=== PATIENT | male | born 1960 | race Caucasian/White ===

== ENCOUNTER 2021-07-16 21:34 | Inpatient (IN) | payer BC, SELFPAY ==
--- NOTE | ~2021-07-16 | CT_ITS ---
EXAMINATION: CT abdomen pelvis w con INDICATION: Right lower quadrant pain TECHNIQUE: Computed tomographic images of the abdomen and pelvis were obtained after the administrati on of 100 cc of Omnipaque 300 intravenous contrast. The dose-length product (DLP) was 769.15 mGy-cm. Automated exposure control and iterative reconstruction technique were employed. COMPARISON: None available FINDINGS: Minimal dependent atelectasis is present in the lung bases. The heart size is normal. Cysts of the liver measure up to 3.4 cm in the right hepatic lobe. The spleen, pancreas, gallbladder, and adrenal glands are normal. The kidneys are unremarkable. The dilated appendix measures up to 1.4 cm. There is edematous stranding of the periappendiceal fat. There is a tiny fluid collection near the ti p of the appendix. No free intraperitoneal gas is identified. No pathologically enlarged abdominal or pelvic lymph nodes are identified. There are no dilated loops of bowel. IMPRESSION: 1. Acute appendicitis with small abscess near the tip. Reviewed, dictated and finalized at location A.
[2021-07-16 21:37] VITALS: BP 123/88; PULSE 102; RESP 14; TEMP 36.6; O2SAT 97
--- NOTE | 2021-07-16 21:47 | ED.ABDPAIN ---
HPI - Abdominal Pain General Chief Complaint: Abdominal Pain Stated Complaint: Right sided abd pain Time Seen by Provider: 07/16/21 21:46 History of Present Illness HPI narrative: 61-year-old male presents the emergency room with for evaluation of right lower quadrant pain. Patient states the pain began 2 days ago now radiates across his abdomen. Patient states ambulating and lifting his leg up to his chest make the pain worse. Patient denies any abdominal surgeries. Patient states he might of been feverish yesterday when the pain started. Related Data Home Medications Medication Instructions Recorded Confirmed clonazepam 0.5 mg PO BID PRN 07/16/21 escitalopram oxalate 20 mg PO DAILY 07/16/21 propranolol 40 mg PO Q12H 07/16/21 Allergies Allergy/AdvReac Type Severity Reaction Status Date / Time No Known Allergies Allergy Verified 07/16/21 22:30 Review of Systems Review of Systems: CONSTITUTIONAL: Denies fever, chills, or sweats. EYES: Denies visual changes, redness, or discharge. ENT: Denies rhinorrhea, congestion, sore throat, or otalgia. CARDIOVASCULAR: Denies chest pain, palpitations, or edema. RESPIRATORY: Denies cough or dyspnea. GASTROINTESTINAL: Reports abdominal pain GENITOURINARY: Denies dysuria or hematuria. SKIN: Denies rash or itching. MUSCULOSKELETAL: Denies back pain, joint pain, or myalgia. NEUROLOGIC: Denies headache, numbness, dizziness, or weakness. PSYCHIATRIC: Denies anxiety or depression. PMFSH Past Medical History Medical History Depression Hypertension Family History Family History (Updated 07/17/21 @ 01:32 by Joanie Membreno RN) Other No pertinent family history Social History Social History Smoking status: Never smoker Alcohol intake: current Drinks per week: 6 Substance use: never Substance use type: does not use Spiritual care concerns: No Exam Narrative: GENERAL: Well-appearing, well-nourished, and in no acute distress. HEAD: Normocephalic, atraumatic. EYES: PERRLA and EOMI. ENT: Nares clear, no rhinorrhea or epistaxis. Mucous membranes moist. Oropharynx without tonsillar hypertrophy exudate or other lesions. Bilateral TMs pearly painting nonbulging NECK: Supple. No adenopathy or masses. No carotid bruits or JVD CHEST: Clear to auscultation. No respiratory distress. No wheezes rales or rhonchi HEART: Regular rate and rhythm. No murmur heard. Normal peripheral pulses. ABDOMEN: Soft, right lower quadrant tenderness over McBurney's point, positive heel strike, positive psoas and obturator signs, hypoactive bowel sounds EXTREMITIES: Normal range of motion. No edema. SKIN: Warm, dry, no rash. NEURO: No focal deficits. Alert and oriented x3. PSYCH: Normal mood and affect. Course Vital Signs Vital signs: Vital Signs Temperature 36.6 C 07/16/21 21:37 Pulse Rate 102 H 07/16/21 21:37 Respiratory Rate 14 07/16/21 21:37 Blood Pressure 123/88 07/16/21 21:37 Pulse Oximetry 97 07/16/21 21:37 Temperature 36.6 C 07/16/21 21:37 Pulse Rate 85 07/16/21 23:50 Respiratory Rate 16 07/16/21 23:50 Blood Pressure 126/89 07/16/21 23:50 Pulse Oximetry 94 07/16/21 23:50 MDM - Abdominal Pain Lab Data Result diagrams: 07/16/21 21:58 07/16/21 21:58 Labs: Lab Results 07/16/21 07/16/21 07/16/21 Range/Units 21:58 21:58 21:58 WBC 15.4 H (4.5-10.0) K/mm3 RBC 4.66 (4.6-6.20) M/mm3 Hgb 15.9 (14.0-18.0) g/dL Hct 46.1 (42.0-52.0) % MCV 98.9 (80-100) fl MCH 34.1 H (26-34) pg MCHC 34.5 (32-36) g/dl RDW 12.1 (11.5-14.5) % Plt Count 192 (150-375) k/mm3 MPV 8.8 (7.4-10.4) fl Immature Gran % (Auto) 0.5 (0-0.5) % Neut % (Auto) 84.3 H (45.5-73.1) % Lymph % (Auto) 9.2 L (18.3-44.2) % [place] % (Auto) 5.5 (2.6-8.5) % Eos % (Auto)
[2021-07-16 22:04] LABS: Basophils Absolute Auto 0.1 K/mm3 (0.0-0.1); Basophils Percent Auto 0.4 % (0.2-1.2); Eosinophils Percent Auto 0.1 % (0-4.4); Hematocrit 46.1 % (42.0-52.0); Hemoglobin 15.9 g/dL (14.0-18.0); Immature Granulocyte Absolute 0.07 K/mm3 (0.00-0.031); Immature Granulocyte Percent A 0.5 % (0-0.5); Lymphocytes Absolute Auto 1.42 K/mm3 (0.9-3.2); Lymphocytes Percent Auto 9.2 % (18.3-44.2); Mean Corpuscular HGB Conc 34.5 g/dl (32-36); Mean Corpuscular Hemoglobin 34.1 pg (26-34); Mean Corpuscular Volume 98.9 fl (80-100); Mean Platelet Volume 8.8 fl (7.4-10.4); Monocytes Absolute Auto 0.9 K/mm3 (0.1-0.6); Monocytes Percent Auto 5.5 % (2.6-8.5); Neutrophils Percent Auto 84.3 % (45.5-73.1); Platelet Count Result 192 k/mm3 (150-375); Red Blood Count 4.66 M/mm3 (4.6-6.20); Red Cell Distribution Width 12.1 % (11.5-14.5); White Blood Count 15.4 K/mm3 (4.5-10.0)
[2021-07-16 22:13] LABS: Lactic Acid Reflex 1.2 mmol/L (0.7-2.0)
[2021-07-16 22:14] LABS: Alanine Aminotransferase 30 U/L (4-50); Albumin Level 4.3 g/dL (3.5-5.1); Alkaline Phosphatase 86 U/L (38-126); Anion Gap 7 mmol/L (8-16); Aspartate Amino Transferase 26 U/L (17-59); Bilirubin,Total 1.3 mg/dL (0.2-1.3); Blood Urea Nitrogen 18 mg/dL (9-20); Calcium 9.8 mg/dL (8.4-10.2); Carbon Dioxide 26 mmol/L (22-30); Chloride 98 mmol/L (98-107); Estimated CRCL calculation 60 ml/min; Estimated Glomerular Filt Rate 57; Glucose 136 mg/dL (65-110); Lipase 42 U/L (23-300); Potassium 4.1 mmol/L (3.4-5.0); Sodium 131 mmol/L (137-145)
[2021-07-16] MEDS: SODIUM CHLORIDE 0.9% IV 1,000 ML 999 ML IV CONT (22:30)
[2021-07-16 23:07] LABS: Appearance Urine Clear (Clear); Bilirubin Urine 1+ (Negative); Blood Urine 1+ (Negative); Color Urine Yellow (Yellow); Glucose Urine UA Negative (Negative); Ketones Urine 1+ mg/dL (Negative); Leukocyte Esterase Ur Negative LEU/UL (Negative); Nitrate Urine Negative (Negative); Protein Urine 2+ mg/dL (Negative); Specific Grav Ur 1.025 (1.001-1.035); pH Urine 6.5 (5.0-9.0)
[2021-07-16 23:15] LABS: Add Urine Microscopic? YES; Mucus Urine Heavy /lpf; Squamous Epithelial Cell Urine Rare /hpf (Few); WBC Urine 0-3 /hpf
[2021-07-16 23:50] VITALS: BP 126/89; PULSE 85; RESP 16; O2SAT 94
[2021-07-17] VITALS (10 sets, daily range): BP systolic 104–143; BP diastolic 59–78; PULSE 72–92; RESP 12–18; TEMP 36.5–36.8; O2SAT 93–97; BMI 27.6
--- NOTE | 2021-07-17 00:03 | ECG_ITS ---
Measurements Intervals [place] Rate: 86 P: 3 [place]: 156 QRS: 3 QRSD: 89 T: 115 QT: 352 QTc: 423 Interpretive Statements SINUS RHYTHM ST-T WAVE ABNORMALITY IN ANTEROLAT/HIGH LAT LEADS ABNORMAL ECG Electronically Signed On 07-17-2021 8:52:22 CDT by Daryl Jc D.O.
--- NOTE | 2021-07-17 01:14 | ADMGEN ---
This patient, Naeem Galvan, was admitted to 3 [facility] Surg Room 300-01. Patient/family oriented to hospital policies and general routines including ID bracelet, bed and alarms, visiting hours, pain management, procedures, bathroom and other care routines, personal items, smoking policy, room service/diet, and visiting hours. Information on how to activate the Rapid Response Team has been discussed. Patient/Family are encouraged to report perceived risks to care and to ask questions if they do not understand what they are told or what they should do.
--- NOTE | 2021-07-17 01:30 | PM.IMHP ---
H&P: HPI History of Present Illness Date/Time: 07/17/21 01:30 Chief Complaint: Abdominal pain. Narrative: This is a 61-year-old male with past medical history significant for generalized anxiety, depression. Patient presents to the emergency room due to right lower quadrant pain which started the day before initially was in the epigastric area later on localized to the right lower quadrant has had fevers, chills, rigors, poor appetite, denies any diarrhea. Patient states that he was in his usual state of health prior to these. Preliminary workup was significant for CT of abdomen and pelvis with appendicitis and perforation. Patient has been admitted for further evaluation ,management and treatment. Review of Systems Review of Systems: Right lower quadrant pain, chills, fevers, poor appetite. Constitutional: Constitutional: Reports chills, Denies fatigue, Reports fever(s), Denies malaise, Denies night sweats, Reports poor appetite and Denies weakness Eyes: Eyes: Denies change in vision ENT: Denies dysphagia, Denies vertigo, Denies nasal congestion, Denies nasal discharge, Denies nasal obstruction and Denies odynophagia Cardiovascular: Cardiovascular: Denies chest pain, Denies pedal edema, Denies claudication, Denies leg edema, Denies lightheadedness, Denies radiating jaw, neck or arm pain, Denies palpitations, Denies dyspnea on exertion and Denies orthopnea Respiratory: Respiratory: Denies cough Gastrointestinal: Gastrointestinal: Reports abdominal pain (Right lower quadrant), Denies dyspepsia, Denies heartburn, Denies diarrhea, Reports nausea and Denies vomiting Genitourinary: Genitourinary: Denies dysuria and Denies flank pain Musculoskeletal: Musculoskeletal: Denies arthralgias, Denies joint swelling and Denies muscle weakness Integumentary/Breasts: Skin/Breast: Denies rash Neurologic: Denies focal weakness and Denies Sensory deficit (Neuro) Psychiatric: Psychiatric: Reports no additional psychiatric complaints and Reports as per HPI Endocrine: Endocrine: Denies cold intolerance, Denies heat intolerance, Denies polyphagia, Denies polydipsia and Denies palpitations Hematologic/Lymphatic: Hematologic/Lymphatic: Reports no additional hematologic/lymphatic complaints and Reports as per HPI Allergic/Immunologic: Allergic/Immunologic: Reports no additional allergic/immunologic complaints and Reports as per HPI [facility] Past Medical History Medical History Depression Hypertension Family History Family History (Updated 07/17/21 @ 01:32 by Joanie Membreno RN) Other No pertinent family history Social History Social History Smoking status: Never smoker Alcohol intake: current Drinks per week: 6 Substance use: never Substance use type: does not use Spiritual care concerns: No Meds Home Medications and Allergies Home Medications Medication Instructions Recorded Confirmed Type clonazepam 0.5 mg PO BID PRN 07/16/21 07/17/21 History escitalopram oxalate 20 mg PO DAILY 07/16/21 07/17/21 History propranolol 40 mg PO Q12H 07/16/21 07/17/21 History Allergies Allergy/AdvReac Type Severity Reaction Status Date / Time No Known Allergies Allergy Verified 07/17/21 01:38 Vital Signs Vital Signs - 24 hr 07/16/21 21:37 07/16/21 23:50 Temperature 97.9 F Pulse Rate 102 H 85 Respiratory Rate 14 16 Blood Pressure 123/88 126/89 Pulse Oximetry 97 94 Exam Narrative: Patient is laying in the stretcher Const: General: cooperative, comfortable, no acute distress, well developed, alert, awake and ill appearing acutely Nutritional Appearance: average body habitus Orientation/consciousness: patient oriented x3 HENMT: Head: normal to inspection, normocephalic and atraumatic Ears: hearing grossly normal bilaterally General nose exam: Normal external nose present Face and sinus: normal
[2021-07-17] MEDS: DEXTROSE 5%/LACTATED RINGERS 1,000 ML 100 ML IV CONT ×3 (02:18→20:48)
[2021-07-17] MEDS: HYDROmorphone HCL INJ (*CRX) 1 MG/ML SYR IV PUSH ×2 (02:18→11:28)
--- NOTE | 2021-07-17 07:53 | PM.IMHP ---
H&P: HPI History of Present Illness Date/Time: 07/17/21 07:53 Chief Complaint: Abdominal pain with CT showing appendicitis Narrative: This is a 61-year-old white male who presented last night to the emergency room with for evaluation of right lower quadrant pain. Patient states the pain began 2 days ago now radiates across his abdomen and is now mainly centered in the right lower quadrant.. Patient states ambulating and lifting his leg up to his chest make the pain worse. Patient denies any abdominal surgeries. Patient states he might of been feverish yesterday when the pain started. Again he states however even though he has a thermometer at home he did not think of taking his temperature and does not know whether he had a fever at home or not. Review of Systems Review of Systems: All systems reviewed & are unremarkable except as noted in HPI and below (HPI) Constitutional: Constitutional: Reports as per HPI, Denies chills and Denies fever(s) Eyes: Eyes: Reports no additional eye complaints ENT: Reports Normal hearing present and Denies dizziness Cardiovascular: Cardiovascular: Reports no additional cardiovascular complaints, Denies chest pain and Denies irregular heart rhythm Comments: Have 2 history of hypertension on medications No previous history of cardiac disease. Respiratory: Respiratory: Reports no additional respiratory complaints Gastrointestinal: Gastrointestinal: Reports no additional gastrointestinal complaints, Denies abdominal pain and Denies bloating Genitourinary: Genitourinary: Denies hematuria Musculoskeletal: Musculoskeletal: Denies back pain Integumentary/Breasts: Skin/Breast: Reports system reviewed and no additional complaints, except as docu Neurologic: Reports Normal hearing present, Denies Abnormal speech present, Denies confusion and Denies dizziness Psychiatric: Psychiatric: Reports no additional psychiatric complaints and Denies confusion Comments: history of depression on medication. Endocrine: Endocrine: Reports no additional endocrine complaints Hematologic/Lymphatic: Hematologic/Lymphatic: Denies easy bleeding and Denies easy bruising Comments: Allergic/Immunologic: Allergic/Immunologic: Reports no additional allergic/immunologic complaints PMFSH Past Medical History Medical History Depression Hypertension Family History Family History Other No pertinent family history Social History Social History Smoking status: Never smoker Alcohol intake: current Drinks per week: 6 Substance use: never Substance use type: does not use Spiritual care concerns: No Meds Home Medications and Allergies Home Medications Medication Instructions Recorded Confirmed Type clonazepam 0.5 mg PO BID PRN 07/16/21 07/17/21 History escitalopram oxalate 20 mg PO DAILY 07/16/21 07/17/21 History propranolol 40 mg PO Q12H 07/16/21 07/17/21 History Allergies Allergy/AdvReac Type Severity Reaction Status Date / Time No Known Allergies Allergy Verified 07/17/21 01:38 Vital Signs Vital Signs - 24 hr 07/16/21 21:37 07/16/21 23:50 07/17/21 06:00 Temperature 36.6 C 36.7 C Pulse Rate 102 H 85 86 Respiratory Rate 14 16 16 Blood Pressure 123/88 126/89 143/78 H Pulse Oximetry 97 94 95 Exam Const: General: cooperative, healthy appearing, comfortable, no acute distress, well developed, alert and awake; No confusion Orientation/consciousness: patient oriented x3 and No confusion HENMT: Head: normal to inspection Ears: hearing grossly normal bilaterally Mouth: Yes moist mucous membranes Teeth and gingiva: dentition normal Eyes: General: appearance normal, both eyes and all related structures Conjunctivae: conjunctivae normal Neck: Neck: normal visual inspection, trachea midline and supple Lymph
[2021-07-17 08:16] LABS: Anion Gap 4 mmol/L (8-16); Blood Urea Nitrogen 15 mg/dL (9-20); Calcium 8.5 mg/dL (8.4-10.2); Carbon Dioxide 27 mmol/L (22-30); Chloride 101 mmol/L (98-107); Estimated CRCL calculation 65 ml/min; Estimated Glomerular Filt Rate > 60; Glucose 145 mg/dL (65-110); Magnesium 1.9 mg/dL (1.6-2.3); Potassium 3.7 mmol/L (3.4-5.0); Sodium 132 mmol/L (137-145)
[2021-07-17 08:29] LABS: Troponin I < 0.012 ng/mL (0.000-0.034)
--- NOTE | 2021-07-17 10:15 | PM.IMPN ---
Progress Note: A&P Assessment and Plan (1) Acute appendicitis: Onset Date: ~07/2021 Qualifiers: Acute appendicitis type: unspecified acute appendicitis type Qualified Code(s): K35.80 - Unspecified acute appendicitis Code(s): K35.80 - Unspecified acute appendicitis Status: Acute Assessment and Plan: Ct indicates acute appendicitis with microperf Will need cardiology risk assessment, for surgical procedure Surgery scheduled for today NPO for now IV fluids D5LR at 100ml/Hr Dilaudid 1mg Q3H for pain control GS consulted, thank you for your help WBC elevated, continue to trend Continue Zosyn (2) Depression: Code(s): F32.A - Depression, unspecified Status: Acute Assessment and Plan: No acute problem Restart lexapro when able to take PO Trend Mood Adjust as indicated (3) Hypertension: Onset Date: Unknown Code(s): I10 - Essential (primary) hypertension Status: Acute Assessment and Plan: Current BP is 143/78 Propranolol on hold while NPO Trend BP and heart rate Add hydralizine IV with parameters for hypertension Adjust therapy as indicated Time Spent With Patient Time with patient: Greater than 35 minutes Subjective Date/time seen: 07/17/21 10:15 Interval history: Date/Time: 07/17/21 01:30 Narrative: This is a 61-year-old male with past medical history significant for generalized anxiety, depression. Patient presents to the emergency room due to right lower quadrant pain which started the day before initially was in the epigastric area later on localized to the right lower quadrant has had fevers, chills, rigors, poor appetite, denies any diarrhea. Patient states that he was in his usual state of health prior to these. Preliminary workup was significant for CT of abdomen and pelvis with appendicitis and perforation. Patient has been admitted for further evaluation ,management and treatment. Date/Time: 07/17/21 10:15 Patient stated that he is experiencing pain in the right upper quadrant. 08/19. He said he has not been eating much over the last couple days. Patient did have some sweats fevers chills or really has not had any of those today. He denies any chest pain, shortness of breath, nausea, vomiting, diarrhea Maxine or constipation. Patient does state that his pain is exacerbated by cough and movement. Kidney function is a little elevated. IV fluids are on board. Review of Systems Review of Systems: All systems reviewed & are unremarkable except as noted in HPI and below Exam Const: General: cooperative, comfortable, no acute distress, well developed, alert, awake and ill appearing acutely Nutritional Appearance: average body habitus Orientation/consciousness: patient oriented x3 HENMT: Head: normal to inspection, normocephalic and atraumatic Ears: hearing grossly normal bilaterally General nose exam: Normal external nose present Face and sinus: normal facial exam Mouth: Yes dry mucous membranes Eyes: General: appearance normal, both eyes and all related structures Alignment and Position: alignment normal Pupils: Equal, round and reactive pupils present EOM: EOMs intact bilaterally Neck: Neck: normal visual inspection, full ROM, no lymphadenopathy, supple and no JVD Thyroid: thyroid normal Resp: Effort & Inspection: normal respiratory effort and able to speak in complete sentences Auscultation: clear to auscultation bilaterally, no crackles, no rales, no rhonchi and no wheezes Cardio: Jugular venous distension: no JVD Rate: regular rate Rhythm: regular rhythm Heart sounds: S1 normal heart sound present and S2 normal heart sound present GI: Inspection: normal to inspection GI Palp: Yes abdominal tenderness, Yes Tenderness to palpation present (GI) and Yes Guarding due to palpation present (GI) : General: Yes deferred Skin: Rashes: no rashes Wounds: no wounds Neuro: G
--- NOTE | 2021-07-17 10:20 | PC.NURSE ---
Dr. Soto stopped at the [facility] station to inform me that he is signing off from a cardiology standpoint for pt to be eligible for surgery today. He stated that he would submit a report later today but that pt is cleared for surgery from cardiology. I contacted Dr. Garrick Porras and made him aware of this.
[2021-07-17 11:42] LABS: Troponin I < 0.012 ng/mL (0.000-0.034)
--- NOTE | 2021-07-17 12:11 | WPDHPUPDATE1 ---
History and Physical Update Update Date/Time: 07/17/21 12:11 History and Physical has been reviewed, including an updated exam of the patient. There are changes in the patient's condition. Patient has been seen by Cardiology and cleared for anesthesia. Risks, benefits, and alternatives of laparoscopic appendectomy possible open have been discussed and questions answered. Patient agrees to proceed with procedure.
--- NOTE | 2021-07-17 12:41 | WPDANESEPPF ---
Anes - Initial Pre Proc Eval Procedure: Operation Date: 07/17/21 12:30 Proposed Procedures p Laparoscopic Appendectomy - Garrick Porras MD Date/Time: 07/17/21 12:41 Surgeon: Garrick Porras MD Pre Op Diagnosis: appendicitis Patient Data Age: 61 Gender: M Height: 1.83 m Weight: 92.6 kg Last Vital Signs Temp 36.7 C 07/17/21 06:00 Pulse 86 07/17/21 06:00 Resp 16 07/17/21 06:00 BP 143/78 H 07/17/21 06:00 Pulse Ox 95 07/17/21 06:00 Allergies Allergy/AdvReac Type Severity Reaction Status Date / Time No Known Allergies Allergy Verified 07/17/21 01:38 Home Medications Medication Instructions Recorded Confirmed Type clonazepam 0.5 mg PO BID PRN 07/16/21 07/17/21 History escitalopram oxalate 20 mg PO DAILY 07/16/21 07/17/21 History propranolol 40 mg PO Q12H 07/16/21 07/17/21 History Laboratory Tests 07/16/21 07/16/21 07/16/21 21:58 21:58 21:58 WBC 15.4 K/mm3 H K/mm3 (4.5-10.0) RBC 4.66 M/mm3 M/mm3 (4.6-6.20) Hgb 15.9 g/dL g/dL (14.0-18.0) Hct 46.1 % % (42.0-52.0) MCV 98.9 fl fl (80-100) MCH 34.1 pg H pg (26-34) MCHC 34.5 g/dl g/dl (32-36) RDW 12.1 % % (11.5-14.5) Plt Count 192 k/mm3 k/mm3 (150-375) MPV 8.8 fl fl (7.4-10.4) Immature Gran % (Auto) 0.5 % % (0-0.5) Neut % (Auto) 84.3 % H % (45.5-73.1) Lymph % (Auto) 9.2 % L % (18.3-44.2) [place] % (Auto) 5.5 % % (2.6-8.5) Eos % (Auto) 0.1 % % (0-4.4) Baso % (Auto) 0.4 % % (0.2-1.2) Lymph # (Auto) 1.42 K/mm3 K/mm3 (0.9-3.2) [place] # (Auto) 0.9 K/mm3 H K/mm3 (0.1-0.6) Eos # (Auto) 0.0 K/mm3 K/mm3 (0-0.3) Baso # (Auto) 0.1 K/mm3 K/mm3 (0.0-0.1) Abs Immat Gran (auto) 0.07 K/mm3 H K/mm3 (0.00-0.031) Absolute Neuts (auto) 13.0 K/mm3 H K/mm3 (1.3-6.7) Absolute Nucleated RBC 0.0 K/mm3 K/mm3 (0.0-0.012) Nucleated RBC % 0.0 % % (0.0-0.2) Sodium 131 mmol/L L mmol/L (137-145) Potassium 4.1 mmol/L mmol/L (3.4-5.0) Chloride 98 mmol/L mmol/L (98-107) Carbon Dioxide 26 mmol/L mmol/L (22-30) Anion Gap 7 mmol/L L mmol/L (8-16) BUN 18 mg/dL mg/dL (9-20) Creatinine 1.30 mg/dL mg/dL (0.7-1.3) Estim Creat Clear Calc 60 ml/min ml/min Estimated GFR 57 L (59 - ) Glucose 136 mg/dL H mg/dL (65-110) Lactic Acid 1.2 mmol/L mmol/L (0.7-2.0) Calcium 9.8 mg/dL mg/dL (8.4-10.2) Magnesium Total Bilirubin 1.3 mg/dL mg/dL (0.2-1.3) AST 26 U/L U/L (17-59) ALT 30 U/L U/L (4-50) Alkaline Phosphatase 86 U/L U/L (38-126) Troponin I Total Protein 8.0 g/dL g/dL (6.3-8.2) Albumin 4.3 g/dL g/dL (3.5-5.1) Lipase 42 U/L U/L (23-300) Urine Color Urine Appearance Urine pH Ur Specific [place] Urine Protein Urine Glucose (UA) Urine Ketones Ur Blood (Man) Urine Nitrate Urine Bilirubin Urine Urobilinogen Leukocyte Esterase Rfl Urine RBC Urine WBC Ur Squamous Epith Cells Urine Mucus 07/16/21 07/17/21 07/17/21 22:56 07:48 07:58 WBC RBC Hgb Hct MCV MCH MCHC RDW Plt Count MPV Immature Gran % (Auto) Neut % (Auto) Lymph % (Auto) [place] % (Auto) Eos % (Auto) Baso % (Auto) Lymph # (Auto) [place] # (Auto) Eos # (Auto) Baso # (Auto)
[2021-07-17] MEDS: LACTATED RINGERS 1,000 ML 30 ML IV CONT ×2 (16:13)
--- NOTE | 2021-07-17 16:30 | W.PM.PROC2 ---
Procedure Note - Detailed Date of Procedure 07/17/21 Pre-op Diagnosis 1. Acute appendicitis with perforation and localized peritonitis. 2. A small umbilical hernia without incarceration. Post-op Diagnosis Same Procedure Performed laparoscopic appendectomy Surgeon Garrick Porras MD Physicist [employer] [facility] TERRY. [place] [employer] Anesthesia General Indications Patient presented to the ER yesterday with 2 days of abdominal pain. There was elevated white count and CT scan suggested acute appendicitis with microperforation and surrounding fluid. Therefore, I discussed the options with the patient including antibiotic treatment only or antibiotics plus surgical intervention. After thorough discussion we decided to proceed with surgical intervention because the may already have a perforation and he is more likely to then develop an abscess or have another problem if not addressed. Findings Patient had a very inflamed enlarged retrocecal appendix completely surrounded by the cecum medially the abdominal wall laterally ileum inferiorly and the omentum anterior and superiorly. Upon dissecting around it there was a flow of brownish green purulent material that was suctioned away (I suspect it was about 5 cc). Description of Procedure The patient was seen again in the Holding Room. The risks, benefits, complications, treatment options, and expected outcomes were discussed with the patient and/or family. The possibilities of reaction to medication, pulmonary aspiration, perforation of viscus, bleeding, recurrent infection, finding a normal appendix, the need for additional procedures, failure to diagnose a condition, and creating a complication requiring transfusion or operation were discussed. There was concurrence with the proposed plan and informed consent was obtained. The site of surgery was properly noted/marked. The patient was taken to Operating Room, and a time out was preformed which identified this as the proper patient, and the procedure verified as laparoscopic appendectomy, possible open. The patient was placed in the supine position and general anesthesia was induced, along with placement of an orogastric tube, SCD hose, and a Goodrich catheter. The abdomen was prepped and draped in a sterile fashion. Because the patient had an obvious small umbilical hernia I used the Parra cannula technique. This then allowed me to make a small transverse incision curvilinearly in the umbilical fold. I then dissected with a 15 blade knife after placing local anesthetic in the area of the proposed incision and the skin was dissected off the top of the hernia sac. There appeared to be preperitoneal fat within the hernia sac. We carefully dissected along its left side and entered the abdomen under direct vision. Under direct vision the peritoneum entered under after placing 2 sutures of 0 Vicryl in the fascia on either side of midline hernia defect. The Parra cannula was then slid into place into the peritoneum under direct vision. The balloon was inflated and then pulled back and the olive was secured down. The pneumoperitoneum was then established to steady pressure of 15 mm Hg. A 12 mm laparoscopic port was placed through a transverse suprapubic incision. An additional 5 mm cannula was then placed in the left upper quadrant at the level half-way between the left costal margin and the umbilicus under direct vision. A careful evaluation of the entire abdomen was carried out. The patient was placed in Trendelenburg and left lateral decubitus position. The small intestines were retracted in the cephalad and left lateral direction away from the pelvis and right lower quadrant. The patient was found to have an enlarged and inflamed appendix that was extending cephalad into the retrocecal position. There was evidence of perforation. As I began trying to dissect the omentum away from the right lateral sidewall and from the anterior surface of the cecum there was a flow of brownis
[2021-07-18 01:22] VITALS: O2SAT 96
[2021-07-18 02:30] VITALS: PULSE 70; O2SAT 95
[2021-07-18] MEDS: DEXTROSE 5%/LACTATED RINGERS 1,000 ML 100 ML IV CONT (05:05)
[2021-07-18 06:00] VITALS: BP 117/70; PULSE 71; RESP 18; TEMP 36.8; O2SAT 97
[2021-07-18 07:20] LABS: Basophils Percent Auto 0.1 % (0.2-1.2); Hematocrit 34.8 % (42.0-52.0); Hemoglobin 11.9 g/dL (14.0-18.0); Lymphocytes Absolute Auto 0.77 K/mm3 (0.9-3.2); Lymphocytes Percent Auto 7.5 % (18.3-44.2); Mean Corpuscular HGB Conc 34.2 g/dl (32-36); Mean Corpuscular Hemoglobin 33.9 pg (26-34); Mean Corpuscular Volume 99.1 fl (80-100); Mean Platelet Volume 9.2 fl (7.4-10.4); Monocytes Absolute Auto 0.6 K/mm3 (0.1-0.6); Monocytes Percent Auto 5.8 % (2.6-8.5); Neutrophils Absolute Auto 8.8 K/mm3 (1.3-6.7); Neutrophils Percent Auto 85.6 % (45.5-73.1); Platelet Count Result 148 k/mm3 (150-375); Red Blood Count 3.51 M/mm3 (4.6-6.20); Red Cell Distribution Width 11.8 % (11.5-14.5); White Blood Count 10.3 K/mm3 (4.5-10.0)
[2021-07-18 07:40] LABS: Alanine Aminotransferase 20 U/L (6-50); Albumin Level 3.1 g/dL (3.5-5.1); Alkaline Phosphatase 60 U/L (38-126); Anion Gap 4 mmol/L (8-16); Aspartate Amino Transferase 21 U/L (17-59); Bilirubin,Total 0.9 mg/dL (0.2-1.3); Blood Urea Nitrogen 12 mg/dL (9-20); Calcium 8.2 mg/dL (8.4-10.2); Carbon Dioxide 28 mmol/L (22-30); Chloride 102 mmol/L (98-107); Estimated CRCL calculation 65 ml/min; Estimated Glomerular Filt Rate > 60; Glucose 137 mg/dL (65-110); Potassium 3.7 mmol/L (3.4-5.0); Sodium 134 mmol/L (137-145)
--- NOTE | 2021-07-18 08:58 | P.PNAN_ITS ---
Anes - Prog Note Post-Op Date/Time: 07/18/21 08:58 Cardiovascular status: normal Respiratory status: normal Airway patency: baseline Mental status: baseline Post-Op hydration status: normal Vital Signs: Last Vital Signs Temp 36.8 C 07/18/21 06:00 Pulse 71 07/18/21 06:00 Resp 18 07/18/21 06:00 BP 117/70 07/18/21 06:00 Pulse Ox 97 07/18/21 06:00 Pain Score (VAS): 0 I/O: Intake & Output 07/17/21 07/18/21 07/18/21 23:59 07:59 15:59 Intake Total 1150 1100 Output Total 200 1275 Balance 950 -175 Laboratory Tests 07/18/21 06:37 07/18/21 06:37 07/17/21 07/18/21 07/18/21 10:54 06:37 06:37 WBC 10.3 H RBC 3.51 L Hgb 11.9 L D Hct 34.8 L MCV 99.1 MCH 33.9 MCHC 34.2 RDW 11.8 Plt Count 148 L MPV 9.2 Immature Gran % (Auto) 1.0 H Neut % (Auto) 85.6 H Lymph % (Auto) 7.5 L Daniels % (Auto) 5.8 Eos % (Auto) 0.0 Baso % (Auto) 0.1 L Lymph # (Auto) 0.77 L Daniels # (Auto) 0.6 Eos # (Auto) 0.0 Baso # (Auto) 0.0 Abs Immat Gran (auto) 0.10 H Absolute Neuts (auto) 8.8 H Absolute Nucleated RBC 0.0 Nucleated RBC % 0.0 Sodium 134 L Potassium 3.7 Chloride 102 Carbon Dioxide 28 Anion Gap 4 L BUN 12 Creatinine 1.20 Estim Creat Clear Calc 65 Estimated GFR > 60 Glucose 137 H Calcium 8.2 L Magnesium 2.0 Total Bilirubin 0.9 AST 21 ALT 20 Alkaline Phosphatase 60 Troponin I < 0.012 Total Protein 6.0 L Albumin 3.1 L Post-procedural complaints: none Patient Feedback: Patient satisfied with anesthetic care.
[2021-07-18] MEDS: ENOXAPARIN 40 MG/0.4 ML SYRINGE SUB-Q (09:10)
--- NOTE | 2021-07-18 09:28 | PM.PNCARD ---
Progress Note: A&P Assessment and Plan (1) Abnormal EKG: Code(s): R94.31 - Abnormal electrocardiogram [ECG] [EKG] Status: Acute Assessment and Plan: Repeat 12 lead EKG. If persistent despite improved blood pressure control will discuss outpatient follow-up and appropriate workup. Patient is not exhibiting any anginal symptoms. No acute cardiovascular issue at this time. 2D echocardiogram to assess for LV function, wall motion abnormalities. Discussed with patient in detail. He understands and agrees with plan of care. Recommendation to follow. (2) Acute appendicitis: Onset Date: ~07/2021 Qualifiers: Acute appendicitis type: unspecified acute appendicitis type Qualified Code(s): K35.80 - Unspecified acute appendicitis Code(s): K35.80 - Unspecified acute appendicitis Status: Acute Assessment and Plan: Management per surgery. Doing well from this perspective. (3) Hypertension: Onset Date: Unknown Code(s): I10 - Essential (primary) hypertension Status: Acute Assessment and Plan: Better control, no issues this morning. Continue home medical therapy. Subjective Date/time seen: Date of service: 07/18/21 09:28 Follow-up for preoperative assessment, abnormal EKG Patient seen by Dr. Shantell Marte in consultation preoperatively yesterday morning and cleared for surgery. Patient did well status post appendectomy. Denies chest pain shortness of breath. Pain control. No issues overnight. Review of Systems Review of Systems: All systems reviewed & are unremarkable except as noted in HPI and below Constitutional: Constitutional: Reports as per HPI and Reports no additional constitutional complaints Eyes: Eyes: Reports as per HPI and Reports no additional eye complaints ENT: Reports system reviewed and no additional complaints, except as documented and Reports as per HPI Cardiovascular: Cardiovascular: Reports as per HPI and Reports no additional cardiovascular complaints Respiratory: Respiratory: Reports as per HPI and Reports no additional respiratory complaints Gastrointestinal: Gastrointestinal: Reports as per HPI and Reports no additional gastrointestinal complaints Genitourinary: Genitourinary: Reports no additional male genitourinary complaints and Reports as per HPI Musculoskeletal: Musculoskeletal: Reports no additional musculoskeletal complaints and Reports as per HPI Integumentary/Breasts: Skin/Breast: Reports system reviewed and no additional complaints, except as docu and Reports as per HPI Neurologic: Reports system reviewed and no additional complaints, except as documented and Reports as per HPI Psychiatric: Psychiatric: Reports no additional psychiatric complaints and Reports as per HPI Endocrine: Endocrine: Reports no additional endocrine complaints and Reports as per HPI Hematologic/Lymphatic: Hematologic/Lymphatic: Reports no additional hematologic/lymphatic complaints and Reports as per HPI Allergic/Immunologic: Allergic/Immunologic: Reports no additional allergic/immunologic complaints and Reports as per HPI Exam Narrative: General: Well developed, alert and oriented x3. No apparent distress, comfortable, pleasant, and cooperative. Head: atraumatic, normocephalic Eyes: EOM intact, sclerae anicteric, conjunctivae unremarkable Ears/Nose: external inspection of ears and nose were grossly normal Mouth/Throat: oral mucosa pink and moist Neck: supple, normal range of motion, no jugular venous distention or carotid bruits, thyroid nonpalpable, trachea midline. Cardiac: Regular rate and rhythm, normal S1-S2, no murmurs, clicks, gallops, or rubs. Lungs: Clear to auscultation bilaterally, no rales, wheezes, or rhonchi. Abdomen: Soft, nontender, nondistended, positive bowel sounds throughout. No appreciable hepatosplenomegaly, no rebound guarding or rigidity noted. Abdominal aorta nonpalpable, no appreciable b
--- NOTE | 2021-07-18 09:32 | ECG_ITS ---
Measurements Intervals [place] Rate: 78 P: -3 FL: 156 QRS: 20 QRSD: 98 T: 178 QT: 379 QTc: 434 Interpretive Statements SINUS RHYTHM EARLY PRECORDIAL R/S TRANSITION ST-T WAVE ABNORMALITY IN ANTEROLAT/HIGH LAT LEADS- CONSIDER ISCHEMIA ABNORMAL ECG Electronically Signed On 07-18-2021 10:21:36 CDT by Daryl Jc D.O.
--- NOTE | 2021-07-18 09:32 | ECHO_ITS ---
Patient Info Name: Naeem Galvan Age: 61 years : 1960 Gender: Male Ht: 72 in Wt: 204 lbs BSA: 2.18 m2 HR: 69 bpm BP: 117 / 70 mmHg Heart Rhythm: Sinus Rhythm Technical Quality: Good Exam Date: 07/18/2021 2:50 PM Exam Location: [facility] Patient Status: Inpatient Admit Date: 07/17/2021 Staff Ordering Physician: Mark Stephens MD Recyclable Materials Collector: Arianna Leung RDCS Attending Provider: Garrick Porras MD Referring Physician: Angelo URRUTIA; Exam Type: CA echo doppler color flow Study Info Indications R94.31 - Abnormal electrocardiogram ECG EKG Complete two-dimensional, color flow and Doppler transthoracic echocardiogram is performed. Summary 1. Complete two-dimensional, color flow and Doppler transthoracic echocardiogram is performed. 2. Left ventricular systolic function is normal, estimated at 60%. 3. Left ventricular chamber dimension is mildly enlarged. 4. The left ventricular diastolic function is normal. 5. Global longitudinal strain is mildly elevated at -17 %. 6. There is trace mitral valve regurgitation. Left Ventricle Left ventricular systolic function is normal, estimated at 60%. Left ventricular chamber dimension is mildly enlarged. The left ventricular diastolic function is normal. Global longitudinal strain is mildly elevated at -17 %. Right Ventricle Right ventricular chamber dimension is normal. Right ventricular systolic function is normal. Left Atria Left atrial chamber dimension is normal. Right Atria Right atrial chamber dimension is normal. Aortic Valve The aortic valve is trileaflet. There is no aortic valve stenosis. There is no aortic valve regurgitation. Pulmonic Valve The pulmonic valve is not well visualized. There is trace pulmonic regurgitation. Mitral Valve The mitral valve has normal leaflets. There is trace mitral valve regurgitation. Tricuspid Valve The tricuspid valve leaflets are normal. There is trace tricuspid valve regurgitation. No pulmonary hypertension, estimated pulmonary arterial systolic pressure is 25 mmHg. Pericardium/Pleural The pericardium appears normal. There is no pericardial effusion. Inferior Vena Cava Normal inferior vena cava with >50% collapse upon inspiration consistent with normal right atrial pressure, 5 mmHg. Aorta The aortic root size at the sinus of Valsalva is normal. There is mild aortic atherosclerosis. Left Ventricular Outflow Tract Name Value Normal LVOT 2D LVOT Diameter 2.0 cm LVOT Doppler LVOT Peak Gradient 4 mmHg LVOT Mean Gradient 3 mmHg LVOT VTI 23 cm LVOT VTI/AV VTI Ratio 1.0 LVOT Stroke Volume 74 ml Pulmonic Valve Name Value Normal RVOT Doppler RVOT Peak Gradient
[2021-07-18 10:06] VITALS: PULSE 82
[2021-07-18] MEDS: ESCITALOPRAM OXALATE 10 MG TABLET 20 MG PO (10:06)
[2021-07-18] MEDS: PROPRANOLOL HCL 40 MG TABLET PO (10:06)
--- NOTE | 2021-07-18 10:08 | PM.CNCAR ---
Assessment and Plan Additional Plan pre-operative evaluation before non cardiac surgery (urgent surgery for appendicitis), MET > 4, EKG with SR and LVH, asymptomatic at baseline, no prior cardiac Hx or risk factors other than HTN, plan no further cardiac work up needed before non cardiac surgery. Please call back if needed. History of Present Illness History of Present Illness Consult date/time: 07/17/21 10:08 Consult reason: pre-op evaluation Reason For Visit: appendicitis Narrative: Patient presented for evaluation of acute abdominal pain and nausea, started few days ago in mid abdomen then moved to right lower quadrant with chills fever and sever pain and tenderness constant. He was found to have appendicitis and referred for surgery. Cardiology called for pre-operative evaluation. He is physically active and walks for 1.5 miles 3 times per week. He has no chest pain or SOB and don;t need to interrupt for rest. No prior Hx of cardiac disease. Positive Hx of HTN and controlled. Review of Systems Review of Systems: All systems reviewed & are unremarkable except as noted in HPI and below PMFSH Past Medical History Medical History Depression Hypertension Family History Family History Other No pertinent family history Social History Social History Smoking status: Never smoker Alcohol intake: current Drinks per week: 6 Substance use: never Substance use type: does not use Spiritual care concerns: No Meds Home Medications and Allergies Home Medications Medication Instructions Recorded Confirmed Type clonazepam 0.5 mg PO BID PRN 07/16/21 07/17/21 History escitalopram oxalate 20 mg PO DAILY 07/16/21 07/17/21 History propranolol 40 mg PO Q12H 07/16/21 07/17/21 History Allergies Allergy/AdvReac Type Severity Reaction Status Date / Time No Known Allergies Allergy Verified 07/17/21 01:38 Vital Signs Vital Signs - 24 hr 07/17/21 16:13 07/17/21 16:15 07/17/21 16:30 Temperature 36.8 C Pulse Rate 82 89 92 Respiratory Rate 12 15 17 Blood Pressure 116/77 122/74 105/59 L Pulse Oximetry 93 94 94 07/17/21 16:45 07/17/21 17:00 07/17/21 17:06 Temperature Pulse Rate 75 78 78 Respiratory Rate 12 13 14 Blood Pressure 104/68 106/69 111/73 Pulse Oximetry 94 94 94 07/17/21 17:42 07/17/21 18:46 07/17/21 22:00 Temperature 36.6 C 36.5 C Pulse Rate 76 72 Respiratory Rate 16 18 Blood Pressure 108/61 108/62 Pulse Oximetry 93 97 95 07/18/21 01:22 07/18/21 02:30 07/18/21 06:00 Temperature 36.8 C Pulse Rate 70 71 Respiratory Rate 18 Blood Pressure 117/70 Pulse Oximetry 96 95 97 07/18/21 10:06 Temperature Pulse Rate 82 Respiratory Rate Blood Pressure Pulse Oximetry Exam Const: General: comfortable and no acute distress Other: Able to lie flat HENMT: General nose exam: Normal nares present and no epistaxis Mouth: Yes moist mucous membranes Eyes: Sclera: sclerae normal Pupils: Equal, round and reactive pupils present Neck: Neck: supple and no JVD Carotids: no bruits Resp: Auscultation: clear to auscultation bilaterally and lung sounds not diminished Other: No chest wall tenderness Cardio: Rate: regular rate Rhythm: regular rhythm Heart sounds: no gallops, no murmurs and no rubs GI: GI Palp: Yes Soft to palpation and No Tenderness to palpation present (GI) Auscultation: normal bowel sounds Skin: General skin exam: normal color, rashes and/or lesions noted and no erythema Other: Warm Neuro: Cranial nerves: Yes Equal, round and reactive pupils present Speech: normal speech Other: No obvious focal deficit or facial asymmetry Extrem: General: no edema Other: Normal capillary refills Intact distal pulses. Results Labs and Meds Result diagrams: 07/18/21 06:37
--- NOTE | 2021-07-18 12:45 | PM.IMPN ---
Progress Note: A&P Assessment and Plan (1) Acute appendicitis: Onset Date: ~07/2021 Qualifiers: Acute appendicitis type: unspecified acute appendicitis type Qualified Code(s): K35.80 - Unspecified acute appendicitis Code(s): K35.80 - Unspecified acute appendicitis Status: Acute Assessment and Plan: Ct indicates acute appendicitis with microperf Will need cardiology risk assessment, for surgical procedure Surgery performed on 07/17/21 Started with clears, advancement per surgery IV fluids D5LR at 100ml/Hr Dilaudid 1mg Q3H for pain control GS consulted, thank you for your help WBC trending down currently 10.3 Continue Zosyn (2) Depression: Code(s): F32.A - Depression, unspecified Status: Acute Assessment and Plan: No acute problem Restarted lexapro Trend Mood Adjust as indicated Indicated that the lexapro may not be working that well Suggested to switch to Zoloft, but he will need to follow up with his primary for the switch (3) Hypertension: Onset Date: Unknown Code(s): I10 - Essential (primary) hypertension Status: Acute Assessment and Plan: Current BP is 117/70 Propranolol restarted Trend BP and heart rate Adjust therapy as indicated Time Spent With Patient Time with patient: Greater than 35 minutes Subjective Date/time seen: 07/18/21 12:45 Interval history: Date/Time: 07/17/21 01:30 Narrative: This is a 61-year-old male with past medical history significant for generalized anxiety, depression. Patient presents to the emergency room due to right lower quadrant pain which started the day before initially was in the epigastric area later on localized to the right lower quadrant has had fevers, chills, rigors, poor appetite, denies any diarrhea. Patient states that he was in his usual state of health prior to these. Preliminary workup was significant for CT of abdomen and pelvis with appendicitis and perforation. Patient has been admitted for further evaluation ,management and treatment. Date/Time: 07/17/21 10:15 Patient stated that he is experiencing pain in the right upper quadrant. 08/19. He said he has not been eating much over the last couple days. Patient did have some sweats fevers chills or really has not had any of those today. He denies any chest pain, shortness of breath, nausea, vomiting, diarrhea Maxine or constipation. Patient does state that his pain is exacerbated by cough and movement. Kidney function is a little elevated. IV fluids are on board. Date/Time 07/18/21 1245 Patient seems to be doing okay. He stated say that his pain was 2/10 was sore sensation. Patient stated that he has no chest pain, shortness of breath, nausea, vomiting, diarrhea, constipation did have a weakness or fatigue. Patient has been able to tolerate fluids at and stated that surgery told him and he could advance his diet if he could tolerate foods he probably could go home today. Patient also inquired about an appropriate antidepressant. The patient seems very stable at this time and should be stable for home as long as he can eat. Review of Systems Review of Systems: All systems reviewed & are unremarkable except as noted in HPI and below Exam Const: General: cooperative, comfortable, no acute distress, well developed, alert and awake Nutritional Appearance: average body habitus Orientation/consciousness: patient oriented x3 HENMT: Head: normal to inspection, normocephalic and atraumatic Ears: hearing grossly normal bilaterally General nose exam: Normal external nose present Face and sinus: normal facial exam Mouth: Yes dry mucous membranes Eyes: General: appearance normal, both eyes and all related structures Alignment and Position: alignment normal Sclera: sclerae normal Pupils: Equal, round and reactive pupils present EOM: EOMs intact bilaterally Neck: Neck: normal visual inspect
[2021-07-18 14:00] VITALS: BP 121/68; PULSE 73; RESP 16; TEMP 36.3; O2SAT 96
--- NOTE | 2021-07-18 16:33 | PM.DS ---
DS: Admitting Diagnosis Discharge Date 07/18/21 Admitting Diagnosis Acute appendicitis with suspected perforation and small abscess Hypertension Depression Acute EKG changes DS: Discharge Diagnosis Discharge Diagnosis (1) Acute appendicitis: Onset Date: ~07/2021 Qualifiers: Acute appendicitis type: unspecified acute appendicitis type Qualified Code(s): K35.80 - Unspecified acute appendicitis Code(s): K35.80 - Unspecified acute appendicitis Status: Acute Assessment and Plan: 07/17/21 - Laparoscopic appendectomy - by Dr. Porras. Findings of acute appendicitis with perforation and localized peritonitis and small abscess. He was also found to have a small umbilical hernia without incarceration. (2) Hypertension: Onset Date: Unknown Code(s): I10 - Essential (primary) hypertension Status: Acute Assessment and Plan: Hospitalist consulted for medical management and EKG changes. BP monitored while NPO and IV hydralazine PRN was available when his home medication was on hold. After surgery, when he was tolerating an oral diet, his medication was restarted. BP stable. F/u with PCP for further management. (3) Depression: Code(s): F32.A - Depression, unspecified Status: Acute Assessment and Plan: Home medication restarted after surgery once tolerating PO. No acute problems, remained stable. F/u with PCP. (4) Abnormal EKG: Code(s): R94.31 - Abnormal electrocardiogram [ECG] [EKG] Status: Acute Assessment and Plan: EKG in the ER showed sinus rhythm with St-T wave abnormality in anterolateral/high lat leads. Cardiology was consulted pre-operatively. They evaluated the patient, felt the patient was asymptomatic at baseline and EKG showed SR with LVH. No plans for further cardiac workup needed before non cardiac surgery. Therefore, surgery proceeded. DS: Summary Hospital Course Reason for hospitalization: This is a 61 yo male with hypertension, who presented to the ER with complaints of RLQ abdominal pain x 2 days. Work-up in the ED showed evidence of acute appendicitis with a small abscess at the tip on CT. He also had associated leukocytosis. He was admitted in this setting. Hospital Course: The patient was treated with broad-spectrum IV antibiotics, IV fluids, analgesics, and underwent a laparoscopic appendectomy by Dr. Porras on 07/17/21. There were findings of a small amount of purulent drainage near the appendix that was drained, as well as acute appendicitis. He was transferred to the medical floor following surgery and IV antibiotics were continued. He was slowly advanced on his diet, which he tolerated well. He was tolerating activity and pain was well controlled on POD#1. Pathology was still pending. Cardiology ordered an echocardiogram, which was pending on discharge, and recommended follow-up as an outpatient. Labs were monitored and his WBC was trending down. He was stable for discharge on POD#1 on oral antibiotics with follow-up with Cardiology and Dr. Porras. Status at Discharge Functional status at discharge: independent ambulation Overall status at discharge: patient is progressing back to baseline Time Spent with Patient Time attestation: Total time spent providing and/or coordinating discharge services:45 Time spent: Greater than 30 minutes Exam Const: General: comfortable, no acute distress, alert and awake Orientation/consciousness: patient oriented x3 Resp: Effort & Inspection: normal respiratory effort Auscultation: clear to auscultation bilaterally Cardio: Rate: regular rate Rhythm: regular rhythm GI: Inspection: non-distended GI Palp: Yes Soft to palpation, Yes Tenderness to palpation present (GI) (incisional) and No Guarding due to palpation present (GI) Auscultation: normal bowel sounds Other: Abdominal incisions clean and dry, glue intact. Umbilical incision with gauze dressing that is dry and intact. Neuro:
== END 2021-07-18 16:58 | disposition home or self-care (01) | DRG 340 ==
LOC: ANHED 22:08 → ANH3MEDSUR 07-17 00:56
PROVIDERS: Nurse Practitioner; Admitting Provider Surgery; Emergency Provider Nurse Practitioner Family; PCP Family Medicine; Visit Provider Nurse Practitioner Family
PROC: 0DTJ4ZZ Resection of Appendix, Percutaneous Endoscopic Approach (ICD-10-PCS; CPT 44970; principal; 2021-07-17 12:30)
DX: K35.33 Acute appendicitis with perforation, localized peritonitis, and gangrene, with abscess (principal); K42.9 Umbilical hernia without obstruction or gangrene; I10 Essential (primary) hypertension; F32.A Depression, unspecified; F41.1 Generalized anxiety disorder; R94.31 Abnormal electrocardiogram [ECG] [EKG]; D72.829 Elevated white blood cell count, unspecified
CPT/HCPCS: 36415; 74177; 80048; 80053; 81001; 83605; 83690; 83735; 84484; 85025; 88302; 88304; 93005; 93306; 96361; 96365; 96375; 96376; 99285; A9270; G0378; J0131; J0330; J1100; J1170; J1650; J2250; J2405; J2543; J2704; J2710; J3010; J7030; J7120; J7121; Q9967

== ENCOUNTER 2022-05-23 11:30 | Outpatient (CLI) | payer OTHER, SELFPAY ==
[2022-05-23 19:26] LABS: Hematocrit 45.9 % (42.0-52.0); Hemoglobin 15.5 g/dL (14.0-18.0); Mean Corpuscular HGB Conc 33.8 g/dl (32-36); Mean Corpuscular Hemoglobin 33.6 pg (26-34); Mean Corpuscular Volume 99.6 fl (80-100); Mean Platelet Volume 9.1 fl (7.4-10.4); Platelet Count Result 233 k/mm3 (150-375); Red Blood Count 4.61 M/mm3 (4.6-6.20); White Blood Count 6.5 K/mm3 (4.5-10.0)
[2022-05-23 19:32] LABS: Alanine Aminotransferase 61 U/L (6-50); Albumin Level 4.5 g/dL (3.5-5.1); Alkaline Phosphatase 89 U/L (38-126); Anion Gap 5 mmol/L (8-16); Aspartate Amino Transferase 51 U/L (17-59); Bilirubin,Total 0.8 mg/dL (0.2-1.3); Blood Urea Nitrogen 18 mg/dL (9-20); Calcium 9.5 mg/dL (8.4-10.2); Carbon Dioxide 31 mmol/L (22-30); Chloride 103 mmol/L (98-107); Cholesterol 187 mg/dL (0-200); Estimated Glomerular Filt Rate 56; Glucose 83 mg/dL (65-110); HDL Direct 69 mg/dL; Potassium 4.6 mmol/L (3.4-5.0); Sodium 139 mmol/L (137-145); Triglycerides 117 mg/dL (<150)
[2022-05-23 19:44] LABS: LDL Cholesterol Direct 84 mg/dL
[2022-05-23 20:01] LABS: Prostate Specific Antigen 0.6 ng/mL (< OR = 4.0)
[2022-05-23 20:40] LABS: Hemoglobin A1C 5.1 % (<5.7)
== END 2022-05-23 11:31 | disposition home or self-care (01) ==
LOC: ANHGOSHLAB 11:33
PROVIDERS: PCP Family Medicine; Visit Provider Nurse Practitioner
DX: E78.5 Hyperlipidemia, unspecified (principal); F32.A Depression, unspecified; I10 Essential (primary) hypertension; R73.09 Other abnormal glucose; Z12.5 Encounter for screening for malignant neoplasm of prostate
CPT/HCPCS: 36415; 80053; 80061; 83036; 84153; 84443; 85027; G0103

== ENCOUNTER 2022-09-14 11:13 | Outpatient (CLI) | payer OTHER, SELFPAY ==
[2022-09-14 19:10] LABS: Appearance Urine Turbid (Clear); Bacteria Urine None Seen /hpf; Bilirubin Urine Negative (Negative); Blood Urine Negative (Negative); Color Urine Yellow (Yellow); Glucose Urine UA Negative (Negative); Ketones Urine Negative (Negative); Leukocyte Esterase Ur 2+ LEU/UL (Negative); Mucus Urine Present /lpf; Need Manual Microscopic Reviewed; Nitrate Urine Negative (Negative); Non Pathogenic Casts 0-2; Protein Urine Trace mg/dL (Negative); RBC Urine 0-2 /hpf (0-2); Specific Grav Ur 1.021 (1.001-1.035); Squamous Epithelial Cell Urine Occasional /hpf (Few); WBC Urine 51-100 /hpf; pH Urine 5.5 (5.0-9.0)
[2022-09-14 19:13] LABS: Add Urine Microscopic? YES
[2022-09-14 19:22] LABS: Alanine Aminotransferase 35 U/L (6-50); Alkaline Phosphatase 78 U/L (38-126); Anion Gap 5 mmol/L (8-16); Aspartate Amino Transferase 38 U/L (17-59); Bilirubin,Total 0.5 mg/dL (0.2-1.3); Blood Urea Nitrogen 10 mg/dL (9-20); Calcium 8.8 mg/dL (8.4-10.2); Carbon Dioxide 30 mmol/L (22-30); Chloride 104 mmol/L (98-107); Estimated Glomerular Filt Rate > 60; Glucose 93 mg/dL (65-110); Potassium 4.2 mmol/L (3.4-5.0); Sodium 139 mmol/L (137-145)
[2022-09-14 19:36] LABS: Hematocrit 39.7 % (42.0-52.0); Hemoglobin 12.9 g/dL (14.0-18.0); Mean Corpuscular HGB Conc 32.5 g/dl (32-36); Mean Corpuscular Hemoglobin 32.5 pg (26-34); Mean Platelet Volume 9.2 fl (7.4-10.4); Platelet Count Result 259 k/mm3 (150-375); Red Blood Count 3.97 M/mm3 (4.6-6.20); Red Cell Distribution Width 11.9 % (11.5-14.5); White Blood Count 4.5 K/mm3 (4.5-10.0)
[2022-09-14 19:46] LABS: Thyroid Stimulating Hormone 0.801 uIU/mL (0.465-4.680)
[2022-09-14 19:58] LABS: Hepatitis C Virus Antibody Negative (Negative)
== END 2022-09-14 11:14 | disposition home or self-care (01) ==
LOC: ANHGOSHLAB 11:14
PROVIDERS: PCP Family Medicine; Visit Provider Nurse Practitioner
DX: Z00.00 Encounter for general adult medical examination without abnormal findings (principal); R50.9 Fever, unspecified; R61 Generalized hyperhidrosis; E78.5 Hyperlipidemia, unspecified; R35.0 Frequency of micturition
CPT/HCPCS: 36415; 80053; 81001; 84443; 85027; 86803; 87086